=== PATIENT | female | born 1945 | race Caucasian/White ===

== ENCOUNTER 2016-10-06 11:51 | Emergency (ER) | payer MEDICARE, OTHER ==
[~2016-10-06 11:51] MED LIST: ALENDRONATE SOD70 M1 PO; ASPIR-TRIN325 MG; BISOPROLOL FUMA10 MG; CALCIUM 500 + D1 TAB; CILOXAN5 ML OP; DILTIAZEM HCL300 MG; HYDROCHLOROTHIA50 MG; HYDROCHLOROTHIAZIDE; LIPITOR10 M1 PO; NIASPAN1000 MG; NIASPAN500 MG; NORVASC10 MG PO; POTASSIUM CHLO10 MEQ; PRINIVIL10 M1 PO; SPIRONOLACTONE25 M1 PO; TOPROL XL200 M1 PO; VITAMIN D31000 UNI3 PO
[2016-12-30] MEDS ORDERED: SPIRIVA18 MC1 INH (19:20)
[2016-12-30] MEDS ORDERED: FLAGYL250 M1 PO (19:21)
[2016-12-30] MEDS ORDERED: NORVASC5 M2 PO (21:19)
[2017-01-06] MEDS ORDERED: LEVAQUIN750 M1 PO (16:04)
[2017-01-06] MEDS ORDERED: DULERA 200 MCG/13 G1 INH (16:21)
[2017-01-06] MEDS ORDERED: TOPROL XL100 M1 PO (16:22)
[2017-01-06] MEDS ORDERED: CULTURELLE1 EAC1 PO (16:25)
== END 2016-10-06 13:41 ==
LOC: EDMED 11:51
PROC: 0HQGXZZ Repair Left Hand Skin, External Approach (ICD-10-PCS; principal; 2016-10-06)
DX: S61.412A Laceration without foreign body of left hand, initial encounter (principal); I10 Essential (primary) hypertension; Z79.899 Other long term (current) drug therapy; W27.1XXA Contact with garden tool, initial encounter; Y92.019 Unspecified place in single-family (private) house as the place of occurrence of the external cause